=== PATIENT | female | born 1945 | race Caucasian/White ===

== ENCOUNTER 2018-10-03 00:55 | Emergency (ER) | payer MEDICARE, OTHER ==
[2018-10-03] MEDS ORDERED: ACETAMINOPHEN 325 MG TAB (03:20)
[2018-10-03] MEDS: ACETAMINOPHEN 325 MG TAB PO (03:22)
== END 2018-10-03 03:57 | disposition home or self-care (01) ==
LOC: E/R 03:57
DX: S51.812A Laceration without foreign body of left forearm, initial encounter (principal); I12.9 Hypertensive chronic kidney disease with stage 1 through stage 4 chronic kidney disease, or unspecified chronic kidney disease; N18.9 Chronic kidney disease, unspecified; S81.812A Laceration without foreign body, left lower leg, initial encounter; W01.0XXA Fall on same level from slipping, tripping and stumbling without subsequent striking against object, initial encounter; Y92.9 Unspecified place or not applicable; Z79.82 Long term (current) use of aspirin
CPT/HCPCS: 73070; 73590; 99283-25